=== PATIENT | female | born 1955 | race African-American/Black ===

== ENCOUNTER 2021-12-23 16:43 | Inpatient (IN) | payer MEDICARE, MEDICAID ==
[~2021-12-23] VITALS: Ht 152.4 cm; Wt 245.5 kg
[~2021-12-23 16:43] MED LIST: ALBUPOW26; AMIT25TA12 OR; CARV3.1240 OR; DOCU-94 OR; FURO40TA4 OR; GABA300C10 OR; HYDR-1421; LISI2.5T47 OR; OMEP20.6 OR; SIMV-13 OR
[2021-12-23 20:00] VITALS: BP 107/66
[2021-12-23] MEDS ORDERED: NITROGLYCERIN 0.4 MG SL TAB SL PRN (20:00)
[2021-12-23] MEDS ORDERED: MORPHINE SULFATE INJ 2 MG/ml SYRG IV PRN (20:00)
[2021-12-23] MEDS ORDERED: ONDANSETRON HCL 4 MG/2 ML VIAL IV PRN (20:00)
[2021-12-23] MEDS: HYDROcodone-ACET 5/325MG TAB PO PRN (21:14)
[2021-12-23] MEDS: IPRATROPIUM BROM 0.5 MG/2.5ML INH SOL NEB SCH (21:58)
[2021-12-23] MEDS: ALBUTEROL SULF 2.5 MG/0.5ML(0.5%) NEB SOLN NEB SCH (21:58)
[2021-12-23 22:00] VITALS: BP 88/48
[2021-12-23 23:12] LABS: Basophils # (auto) 0.1 10 ^3/uL (0-0.2); Eosinophils # (auto) 0.3 10 ^3/uL (0-0.8); Eosinophils % (auto) 5.5 % (0.0-7.0); Hemoglobin 12.8 g/dL (12.2-16.2); Lymphocytes # (auto) 2.1 10 ^3/uL (0.4-5.4); Lymphocytes % (auto) 37.5 % (10.0-50.0); Mean Corpuscular Hemoglobin 29.9 pg (28.0-32.0); Mean Corpuscular Hgb Conc. 33.7 g/dL (32.0-36.0); Mean Corpuscular Volume 88.7 fL (80.0-100.0); Monocytes # (auto) 0.4 10 ^3/uL (0-1.3); Neutrophils # (auto) 2.8 10 ^3/uL (1.6-8.6); Red Blood Cells 4.28 10^6/uL (4.0-5.20); Red Cell Distribution Width 14.8 % (11.8-14.3); White Blood Cell 5.7 10^3/uL (4.4-10.8)
[2021-12-23] MEDS: POTASSIUM CHL 10 Meq TABLET PO SCH (23:20)
[2021-12-23] MEDS: PANTOPRAZOLE 40 MG/10 ML VIAL INJ IV SCH (23:20)
[2021-12-23 23:23] LABS: INR 1.08 (0.9-1.15); Partial Thromboplastin Time 30.6 sec (23.6-33.0)
[2021-12-23 23:27] LABS: Albumin 3.3 g/dL (3.4-5.0); Potassium 4.2 mmol/L (3.5-5.1)
[2021-12-23 23:30] LABS: BUN/Creatinine Ratio 19.9; Calcium 8.8 mg/dL (8.5-10.1)
[2021-12-23 23:33] LABS: Bilirubin, Total 0.4 mg/dL (0.2-1.0); Total Protein 6.8 g/dL (6.4-8.2)
[2021-12-24] MEDS: HYDROcodone-ACET 5/325MG TAB PO PRN ×3 (01:48→21:44)
[2021-12-24 05:00] VITALS: BP 85/46
[2021-12-24] MEDS: FUROSEMIDE 20 MG/2 ML VIAL IV SCH ×2 (06:17→18:22)
[2021-12-24] MEDS: IPRATROPIUM BROM 0.5 MG/2.5ML INH SOL NEB SCH ×3 (07:03→19:58)
[2021-12-24] MEDS: ALBUTEROL SULF 2.5 MG/0.5ML(0.5%) NEB SOLN NEB SCH ×3 (07:03→19:58)
[2021-12-24 08:00] VITALS: BP 104/62
[2021-12-24 09:12] VITALS: BP_SYST 104; BP_SYST 114; BP_DIAS 51; BP_DIAS 62
[2021-12-24] MEDS: PANTOPRAZOLE 40 MG/10 ML VIAL INJ IV SCH ×2 (09:43→21:46)
[2021-12-24] MEDS: POTASSIUM CHL 10 Meq TABLET PO SCH ×2 (09:43→21:43)
[2021-12-24 13:00] VITALS: BP 93/33
[2021-12-24 17:00] VITALS: BP 120/68
[2021-12-24 22:00] VITALS: BP 125/40
[2021-12-24] MEDS: PANTOPRAZOLE 40 MG TAB PO SCH (23:45)
[2021-12-25] MEDS: IPRATROPIUM BROM 0.5 MG/2.5ML INH SOL NEB SCH ×5 (00:56→19:01)
[2021-12-25] MEDS: ALBUTEROL SULF 2.5 MG/0.5ML(0.5%) NEB SOLN NEB SCH ×5 (00:56→19:02)
[2021-12-25 05:00] VITALS: BP 132/75
[2021-12-25] MEDS: HYDROcodone-ACET 5/325MG TAB PO PRN ×2 (05:37→12:37)
[2021-12-25] MEDS: FUROSEMIDE 20 MG TAB PO SCH ×2 (05:37→18:44)
[2021-12-25 08:10] VITALS: BP 119/65
[2021-12-25] MEDS: PANTOPRAZOLE 40 MG TAB PO SCH ×2 (09:10→22:46)
[2021-12-25] MEDS: POTASSIUM CHL 10 Meq TABLET PO SCH ×2 (09:10→22:46)
[2021-12-25 12:56] VITALS: BP 129/83
[2021-12-25 17:19] VITALS: BP 134/77
[2021-12-25 22:00] VITALS: BP 97/47
[2021-12-26 05:00] VITALS: BP 139/66
[2021-12-26] MEDS: FUROSEMIDE 20 MG TAB PO SCH ×2 (05:27→18:00)
[2021-12-26] MEDS: POTASSIUM CHL 10 Meq TABLET PO SCH ×2 (05:28→22:00)
[2021-12-26 06:19] LABS: INR 1.01 (0.9-1.15)
[2021-12-26] MEDS: ALBUTEROL SULF 2.5 MG/0.5ML(0.5%) NEB SOLN NEB SCH ×5 (06:38→23:49)
[2021-12-26] MEDS: IPRATROPIUM BROM 0.5 MG/2.5ML INH SOL NEB SCH ×5 (06:38→23:49)
[2021-12-26 08:13] LABS: Basophils # (auto) 0 10 ^3/uL (0-0.2); Basophils % (auto) 1.1 % (0.0-2.0); Eosinophils # (auto) 0.4 10 ^3/uL (0-0.8); Eosinophils % (auto) 9.3 % (0.0-7.0); Hematocrit 39.9 % (36.0-46.0); Hemoglobin 13.3 g/dL (12.2-16.2); Lymphocytes # (auto) 1.7 10 ^3/uL (0.4-5.4); Lymphocytes % (auto) 40.6 % (10.0-50.0); Mean Corpuscular Hemoglobin 29.3 pg (28.0-32.0); Mean Corpuscular Hgb Conc. 33.3 g/dL (32.0-36.0); Mean Corpuscular Volume 88.2 fL (80.0-100.0); Monocytes # (auto) 0.4 10 ^3/uL (0-1.3); Monocytes % (auto) 9.5 % (0.0-12.0); Neutrophils # (auto) 1.7 10 ^3/uL (1.6-8.6); Neutrophils % (auto) 39.5 % (37.0-80.0); Nucleated Red Blood Cells % 0.1 %; Red Blood Cells 4.53 10^6/uL (4.0-5.20); Red Cell Distribution Width 14.7 % (11.8-14.3); White Blood Cell 4.2 10^3/uL (4.4-10.8)
[2021-12-26 08:24] LABS: BUN/Creatinine Ratio 17.6; Calcium 8.9 mg/dL (8.5-10.1); Potassium 4.5 mmol/L (3.5-5.1)
[2021-12-26] MEDS: PANTOPRAZOLE 40 MG TAB PO SCH ×2 (08:36→23:19)
[2021-12-26 09:00] VITALS: BP 124/57
[2021-12-26 13:00] VITALS: BP 116/71
[2021-12-26] MEDS ORDERED: MIDAZOLAM HCL 2MG/2ML 2ml VIAL (1mg/ml) ONE ×2 (13:40→14:35)
[2021-12-26] MEDS ORDERED: fentaNYL CITRATE 100 MCG/2 ML VL ONE (13:40)
[2021-12-26] MEDS ORDERED: VANCOMYCIN HCL 1000 MG VL ONE (13:40)
[2021-12-26] MEDS ORDERED: LIDOCAINE 2%HCL (LOCAL ANESTH.) INJ 10ml MDV ONE ×3 (13:43→14:26)
[2021-12-26] MEDS ORDERED: VANCOMYCIN 1GM/250ML 250 ML IV ONE (13:45)
[2021-12-26] MEDS ORDERED: HYDROmorphone HCL 2 MG/ML VL/or syr ONE (14:27)
[2021-12-26] MEDS ORDERED: FUROSEMIDE 20 MG/2 ML VIAL ONE ×2 (16:06→16:13)
[2021-12-26] MEDS ORDERED: ceFAZolin 1GM VL ONE (16:56)
[2021-12-26] MEDS: HYDROmorphone HCL 2 MG/ML VL/or syr IV PRN (20:12)
[2021-12-26 20:30] VITALS: BP 119/67
[2021-12-26 22:00] VITALS: BP 115/67
[2021-12-27] MEDS: HYDROmorphone HCL 2 MG/ML VL/or syr IV PRN ×3 (03:35→20:51)
[2021-12-27 05:00] VITALS: BP 130/56
[2021-12-27] MEDS: FUROSEMIDE 20 MG TAB PO SCH ×2 (07:00→17:35)
[2021-12-27] MEDS: ALBUTEROL SULF 2.5 MG/0.5ML(0.5%) NEB SOLN NEB SCH ×4 (07:09→23:53)
[2021-12-27] MEDS: IPRATROPIUM BROM 0.5 MG/2.5ML INH SOL NEB SCH ×4 (07:10→23:53)
[2021-12-27 08:54] VITALS: BP 134/58
[2021-12-27] MEDS: PANTOPRAZOLE 40 MG TAB PO SCH ×2 (09:06→22:00)
[2021-12-27] MEDS: POTASSIUM CHL 10 Meq TABLET PO SCH ×2 (09:06→22:00)
[2021-12-27] MEDS: HYDROcodone-ACET 5/325MG TAB PO PRN (11:53)
[2021-12-27 13:00] VITALS: BP 113/60
[2021-12-27 16:52] VITALS: BP 113/53
[2021-12-27] MEDS: ceFAZolin 2 GM in D5W 5% 100 ML IV SCH (17:34)
[2021-12-28] MEDS: ceFAZolin 2 GM in D5W 5% 100 ML IV SCH ×2 (00:45→08:22)
[2021-12-28] MEDS: HYDROmorphone HCL 2 MG/ML VL/or syr IV PRN (03:27)
[2021-12-28 05:00] VITALS: BP 122/61
[2021-12-28] MEDS: FUROSEMIDE 20 MG TAB PO SCH (05:49)
[2021-12-28] MEDS: IPRATROPIUM BROM 0.5 MG/2.5ML INH SOL NEB SCH ×2 (07:20→12:21)
[2021-12-28] MEDS: ALBUTEROL SULF 2.5 MG/0.5ML(0.5%) NEB SOLN NEB SCH ×2 (07:20→12:21)
[2021-12-28] MEDS: PANTOPRAZOLE 40 MG TAB PO SCH (08:22)
[2021-12-28] MEDS: POTASSIUM CHL 10 Meq TABLET PO SCH (08:22)
[2021-12-28] MEDS: HYDROcodone-ACET 5/325MG TAB PO PRN (08:22)
[2021-12-28 09:00] VITALS: BP 102/56
[2021-12-28 12:54] VITALS: BP 106/60
[2021-12-28 13:00] VITALS: BP 93/55
== END 2021-12-28 14:40 | disposition home or self-care (01) | DRG 226 ==
LOC: WEST WING 18:43 → TELE-WESTW 19:47
PROVIDERS: ADMIT Specialist; ATTEND Specialist
PROC: 05HD33Z Insertion of Infusion Device into Right Cephalic Vein, Percutaneous Approach (ICD-10-PCS; 2021-12-25)
PROC: B54MZZA Ultrasonography of Right Upper Extremity Veins, Guidance (ICD-10-PCS; 2021-12-25)
PROC: 0JH609Z Insertion of Cardiac Resynchronization Defibrillator Pulse Generator into Chest Subcutaneous Tissue and Fascia, Open Approach (ICD-10-PCS; principal; 2021-12-26)
PROC: 02HL3KZ Insertion of Defibrillator Lead into Left Ventricle, Percutaneous Approach (ICD-10-PCS; 2021-12-26)
PROC: 02PA3MZ Removal of Cardiac Lead from Heart, Percutaneous Approach (ICD-10-PCS; 2021-12-26)
PROC: 02H63KZ Insertion of Defibrillator Lead into Right Atrium, Percutaneous Approach (ICD-10-PCS; 2021-12-26)
PROC: 0JPT0PZ Removal of Cardiac Rhythm Related Device from Trunk Subcutaneous Tissue and Fascia, Open Approach (ICD-10-PCS; 2021-12-26)
DX: T82.110A Breakdown (mechanical) of cardiac electrode, initial encounter (principal); I50.23 Acute on chronic systolic (congestive) heart failure; D68.59 Other primary thrombophilia; I42.0 Dilated cardiomyopathy; N17.9 Acute kidney failure, unspecified; J96.10 Chronic respiratory failure, unspecified whether with hypoxia or hypercapnia; Z68.42 Body mass index [BMI] 45.0-49.9, adult; I48.91 Unspecified atrial fibrillation; N18.30 Chronic kidney disease, stage 3 unspecified; R00.1 Bradycardia, unspecified; J44.9 Chronic obstructive pulmonary disease, unspecified; Y71.2 Prosthetic and other implants, materials and accessory cardiovascular devices associated with adverse incidents; E66.01 Morbid (severe) obesity due to excess calories; Z20.822 Contact with and (suspected) exposure to COVID-19; Z79.899 Other long term (current) drug therapy; Y92.89 Other specified places as the place of occurrence of the external cause
CPT/HCPCS: 33225; 33241; 33244; 33249; 36415; 36600; 71045; 80048; 80053; 82805; 83880; 85025; 85610; 85730; 86850; 86900; 86901; 93005; 94640; 99152; 99153; C1882; C9113; G0378; J0690; J2001; J2250; J2405; J7060